=== PATIENT | male | born 1985 | race African-American/Black ===

== ENCOUNTER 2016-07-19 15:20 | Emergency (ER) | payer OTHER ==
[~2016-07-19] VITALS: Ht 190.5 cm; Wt 119.5 kg
[~2016-07-19 15:20] MED LIST: CYCL5TAB PO; LORTA5 PO; Z.0.NO CURRENT MEDS
[2016-07-19 15:30] VITALS: BP 136/82; PULSE 100; RESP 16; TEMP 98.7; O2SAT 99
[2016-07-19] MEDS ORDERED: PRED20 PO (16:09)
--- NOTE | 2016-07-19 16:09 | PD ---
HPI Chief Complaint: Skin Problem Time Seen by Provider: 16:07 Travel History International Travel<30 days: No Contact w/Intl Traveler<30days: No Traveled to known affect area: No History of Present Illness HPI 31-year-old Afro-[place] male presents to the emergency department with five- day history of itchy raised red rash to the torso. Patient denies any specific exposure history except for a dry clean shirt that he wore just prior to the rash emerging. He has had no fever, chills, or other symptoms. Patient denies recent illness. He's been trying [id number] Benadryl and topical ointments without improvement. States he gets worse if he gets overheated and sweaty. Patient has no other significant history. No known drug allergies. PFSH Past Medical History Medical History: Denies Significant Hx Tetanus Vaccination: < 5 Years Influenza Vaccination: No Past Surgical History Other Surgery: Yes (Cyst removal) Social History Alcohol Use: No Tobacco Use: Yes (1 PPD) Substance Use: No Allergies-Medications (Allergen,Severity, Reaction): Coded Allergies: No Known Allergies (Verified , 07/19/16) Reported Meds & Prescriptions Reported Meds & Active Scripts Active Prednisone 20 Mg Tab 20 Mg PO BID Review of Systems Except as stated in HPI: all other systems reviewed are Neg General / Constitutional: No: Fever Eyes: No: Visual changes HENT: No: Headaches Cardiovascular: No: Chest Pain or Discomfort Respiratory: No: Shortness of Breath Gastrointestinal: No: Abdominal Pain Genitourinary: No: Dysuria Musculoskeletal: No: Pain Skin: Positive Rash, Positive Itching Neurologic: No: Weakness Psychiatric: No: Depression Endocrine: No: Polydipsia Hematologic/Lymphatic: No: Easy Bruising Physical Exam Narrative GENERAL: Patient is in no acute distress. SKIN: Warm and dry. Normal color. Normal turgor. Patient has a raised patchy erythematous rash on the torso consistent with contact dermatitis. No other significant findings are noted. HEAD: Atraumatic. Normocephalic. EYES: Pupils equal and round. No scleral icterus. No injection or drainage. ENT: No nasal bleeding or discharge. Mucous membranes pink and moist. Pharynx is clear. Airway is patent. NECK: Trachea midline. Supple and nontender. CARDIOVASCULAR: Regular rate and rhythm. RESPIRATORY: No accessory muscle use. Clear to auscultation. Breath sounds equal bilaterally. MUSCULOSKELETAL: Extremities without clubbing, cyanosis, or edema. No obvious deformities. NEUROLOGICAL: Awake and alert. No obvious cranial nerve deficits. Motor grossly within normal limits. Five out of 5 muscle strength in the arms and legs. Normal speech. PSYCHIATRIC: Appropriate mood and affect; insight and judgment normal. Data Data Last Documented VS Vital Signs Date Time Temp Pulse Resp B/P Pulse Ox O2 Delivery O2 Flow Rate FiO2 07/19/16 15:30 98.7 100 16 136/82 99 MDM Medical Decision Making Medical Screen Exam Complete: Yes Emergency Medical Condition: Yes Differential Diagnosis Atopic dermatitis. Allergic reaction. Rash. Narrative Course Patient is medically stable at time of exam. Patient is felt to have an allergic reaction to dry cleaning material from a send shirts. Patient is given prednisone 20 mg twice a day 5 days. Patient is to use Benadryl and topical Caladryl lotion as needed. Patient follow-up if symptoms do not improve or worsen as discussed. Diagnosis Primary Impression: Allergic dermatitis Referrals: [facility] Patient Instructions: General Instructions Additional Instructions: Patient is felt to have an allergic reaction to dry cleaning material from a send shirts. Patient is given prednisone 20 mg twice a day 5 days. Patient is to use Benadryl and topical Caladryl lotion as needed. Patient follow-up if symptoms do not improve or worsen as discussed. Scripts Prednisone 20 Mg Tab20 Mg PO BID #10 TAB Prov:Margarita Miller MD 07/19/16 Disposition: 01 DISCHARGE HOME Condition: Stable German Rajan July 19, 2016 16:09
== END 2016-07-19 16:14 | disposition home or self-care (01) ==
LOC: PHEFT 15:20
DX: L23.9 Allergic contact dermatitis, unspecified cause (principal)
CPT/HCPCS: 99282